=== PATIENT | male | born 1965 | race Caucasian/White ===

== ENCOUNTER 2022-05-28 14:25 | Outpatient (REF) | payer OTHER, SELFPAY ==
[2022-05-28 15:50] LABS: Abs Immature Grans 0.06 10^3/uL (0.0-0.06); Absolute Basophil Count 0.06 10^3/uL (0.0-0.2); Absolute Lymphocyte Count 4.08 10^3/uL (1.2-3.4); Basophils % 0.4; Eosinophils % 1.5; HCT 42.8 % (40.0-50.0); HGB 14.3 g/dL (13.5-17.5); Immature Grans % 0.4; Lymphocytes % 27.3; MCH 30.3 pg (27.0-33.0); MCHC 33.4 % (32.0-36.0); MCV 91 fL (80-95); MPV 10.3 fL (8.0-11.0); Neutrophils % 63.4; Platelet Count 350 10^3/uL (130-400); RBC 4.72 10^6/uL (4.36-5.78); RDW 13.1 % (11.8-14.1); RDW-SD 43.5 fL; WBC 14.93 10^3/uL (4.4-10.8)
[2022-05-28 15:51] LABS: Absolute Eosinophil Count 0.22 10^3/uL (0.0-0.7); Absolute Monocyte Count 1.05 10^3/uL (0.1-0.8); Absolute Neutrophil Count 9.47 10^3/uL (1.2-6.7)
[2022-05-28 16:04] LABS: C-Reactive Protein 5.69 mg/dL (0.0-0.3)
== END 2022-05-28 14:26 | disposition home or self-care (01) ==
LOC: LBN 14:25
PROVIDERS: PCP Physician Assistant Medical; Visit Provider Surgery
DX: K52.9 Noninfective gastroenteritis and colitis, unspecified (principal)
CPT/HCPCS: 85025; 86140

== ENCOUNTER 2022-06-07 10:31 | Day surgery (SDC) | payer OTHER, SELFPAY ==
--- NOTE | 2022-06-07 06:51 | W.COLOREPORT ---
Date of service: 06/07/22 Time of Service: 12:33 Colonoscopy Report Date of procedure: 06/07/22 Pre-op diagnosis general: colon cancer screening, hx of polyps, hx of diverticulitis Post-op diagnosis procedure note: other (polyps and mass) Procedure: Colonoscopy with biopsies Surgeon: Dixie Brown Anesthesia Type: General:No Airway Estimated blood loss (mL): 5 Pathology: other (Transverse colon biopsy at 90 cm, 80 cm, 73 cm, mass biopsies and polypectomy at 25 cm) Complications: None Disposition: same day Indications: The patient is a pleasant 56-year-old male who is here to discuss another screening colonoscopy. His last colonoscopy was in 2008 and he had a polyp. He denies any changes in bowel habits, melena, hematochezia, unintentional weight loss or family history of colon cancer. The procedure and risks were discussed. The prep was reviewed in detail. Risks, benefits and complications have been reviewed. Complications include but are not limited to bleeding, pain, perforation, missed small lesion/polyp, sore throat, aspiration and adverse reaction to the medications. Questions were entertained and answered to their satisfaction and they wished to proceed. No guarantees were given or implied.? Prep: Miralax/Dulcolax Procedure Start Time: 12:33 Procedure End Time: 13:02 Retraction Time: 20 minutes Findings: multiple polyps and a mass Procedure Description: After informed consent was obtained the patient was taken to the procedure room and placed in a left decubitous position. Monitors were applied and a time out was done. The patients name, date of , procedure, allergies to medications and metal in their body was reviewed. The patient was then sedated. Once sedated and comfortable a rectal exam was done. External exam was normal. Internal exam revealed a normal sphincter tone and no palpable masses. The prostate felt smooth. The scope was then introduced and retro-flexed. No internal hemorrhoids, polyps or masses were identified on retro-flexion. The scope was then advanced to the cecum with some difficulty due to a mass at 65 cm. The ileocecal vlave and appendiceal orifice were identified. The prep was good. The scope was then slowly retracted over 20 minutes back into the rectum. Biopsies of islands of Polyps were removed at 90 cm, 80 cm and 73 cm. Biopsies of a mass were done at 65 cm. Polypectomies done at 25 cm x2. There was no diverticulosis noted. The scope was removed and the patient was woken up and taken back to Same day surgery in stable condition. The patient tolerated the procedure well and there were no immediate complications.
--- NOTE | 2022-06-07 06:52 | W.PM.DSUDISC ---
Date of service: 06/07/22 Time of Service: 12:33 Discharge Plan Disposition Patient Disposition: HOME Condition: Good Discharge Details Reason For Visit: colonoscopy Attending Provider: Dixie Brown Primary Care Provider: Roger Bautista Home Meds and New Rx's Prescriptions: Continued Saccharomyces boulardii [Daily Probiotic (S. boulardii)] 250 mg capsule 5,000 mmu cells PO DAILY aloe vera juice liquid PO DAILY ondansetron HCl 4 mg tablet 4 mg PO Q4H Qty: 7 0RF Rx Instructions: take 1 tab before you start your prep and then as needed afterwards amoxicillin-pot clavulanate 875-125 mg tablet 1 tab PO BID Qty: 28 0RF intestinal formula capsule PO BID small intestine PO turmeric 400 mg capsule 400 mg PO DAILY nerve 4 sure capsule PO DAILY esomeprazole magnesium [Nexium] 20 mg capsule,delayed release(DR/EC) 20 mg PO DAILY ketoconazole 2 % cream 1 applic topical DAILY lisinopril 5 mg tablet 5 mg PO DAILY Discontinued polyethylene glycol 3350 17 gram/dose powder 238 g PO ONCE Qty: 238 0RF Rx Instructions: take per colonoscopy instructions bisacodyl [Dulcolax (bisacodyl)] 5 mg tablet,delayed release (DR/EC) 5 mg PO ONCE Qty: 4 0RF Rx Instructions: take per colonoscopy instructions Discharge Instructions Additional Instructions: Findings: mass and polyps Follow up: I will call you with results and we will plan from there Please call if you develop: fevers >101.5 Nausea or Vomiting Abdominal pain that is not transient Rectal bleeding that is more then a tbsp A hard abdomen and inability to pass gas DAY SURGERY UNIT POST ENDOSCOPY INSTRUCTIONS Instructions for everyone who is given Anesthesia: For your safety, please do the following for the next 24 Hours: a. Do not drive or operate dangerous equipment b. Do not drink alcohol beverages or use any recreational drugs for the first 24 hours or while taking pain medications. The medications in your body may have a reaction that can be dangerous. c. Do not make any important decisions or sign any important papers 1. Generally there are no restrictions on your activity after a day or so has gone by, but you may feel a bit fatigued for a few days. 2. After you arrive home you may have a light meal and return to a normal diet as you can tolerate it without feeling sick to your stomach. 3. After surgery, you may feel pain or discomfort. This should be only transient, but if it persists please contact your doctor. 4. If there are any questions regarding the findings of your procedure, please feel free to contact your doctor. 6. If you are unable to contact your doctor with a problem, contact the hospital at [phone]. 7. Continue all your regular medications unless directed otherwise. I understand the above instructions and have no questions. Signature of Patient or Responsible Adult Escort Date/Time Name of Responsible Adult Escort Signature of Nurse Date/Time Activity:: Activity as Tolerated Diet:: As Tolerated Discharge Orders Discharge Orders: Discharge Order (Routine); Ordered 06/07/22 Ordered By: Dixie Brown
[2022-06-07 10:51] VITALS: BP 136/83; PULSE 104; RESP 16; TEMP 36.6; O2SAT 98
[2022-06-07] MEDS: Lactated Ringers 1,000 ML 80 ML IV (11:29)
--- NOTE | 2022-06-07 12:18 | W.ANESPRE ---
General Info Date of Service Date Performed: 06/07/22 Height: 5 ft 11 in Weight: 98.4 kg Body Mass Index (BMI): 30.2 Surgical Procedure: Operation Date: 06/07/22 12:20 Proposed Procedure Side Surgeon p Colonoscopy Dixie Brown MD Meds Allergies and Home Medications Allergies Allergy/AdvReac Type Severity Reaction Status Date / Time CHUCKY Inhibitors Allergy Mild Other (See Verified 06/07/22 11:07 Comment) Home Medication Medication Instructions Recorded ketoconazole 2 % topical cream 1 applic topical DAILY 03/23/22 lisinopril 5 mg tablet 5 mg PO DAILY 03/23/22 Saccharomyces boulardii 250 mg 5,000 mmu cells PO DAILY 05/18/22 capsule (Daily Probiotic (S. boulardii)) aloe vera juice 100 ml PO DAILY 05/18/22 amoxicillin 875 mg-potassium 1 tab PO BID #28 tabs 05/18/22 clavulanate 125 mg tablet bisacodyl 5 mg tablet,delayed 5 mg PO ONCE colonscopy bowel prep 05/18/22 release (Dulcolax (bisacodyl)) #4 tabs ondansetron HCl 4 mg tablet 4 mg PO Q4H #7 tabs 05/18/22 polyethylene glycol 3350 17 238 g PO ONCE colonoscopy prep 05/18/22 gram/dose oral powder #238 grams esomeprazole magnesium 20 mg 20 mg PO DAILY 05/28/22 capsule,delayed release (Nexium) intestinal formula PO BID 05/28/22 nerve 4 sure PO DAILY 05/28/22 small intestine PO 05/28/22 turmeric 400 mg capsule 400 mg PO DAILY 05/28/22 Current Visit Medications: Current Medications Generic Name Dose Route Start Last Admin Trade Name Freq PRN Reason Stop Dose Admin Hyoscyamine Sulfate 0.125 mg 06/07/22 06:53 Hyoscyamine 0.125 Mg Sl/Oral/Chew SL DIRECTED PRN Ringer's Solution 1,000 mls @ 80 mls/hr 06/07/22 06:00 06/07/22 11:29 IV 07/04/22 23:59 80 mls/hr INFUSION DIEGO Administration IV Miscellaneous Supplies 1 each 06/07/22 06:00 Iv Access IV 07/04/22 23:59 DIRECTED DIEGO Ondansetron HCl 4 mg 06/07/22 06:53 Ondansetron 4 Mg/2 Ml Vial IVP Q4H PRN PRN Nausea / Vomiting Sodium Chloride 0 ml 06/07/22 06:00 Normal Saline Flush 10 Ml Syr IV 07/04/22 23:59 PRN PRN Sodium Chloride 0 ml 06/07/22 06:00 Normal Saline 10 Ml Vial IJ 07/04/22 23:59 DIRECTED PRN Sterile Water 0 ml 06/07/22 06:00 Water,Injection,Sterile 10 Ml Vial IJ 07/04/22 23:59 DIRECTED PRN PFSH Active Problems Active Problems: Problem Status Onset Code Crohn's disease K50.90 Family history of colon cancer Z80.0 Screening for colon cancer Z12.11 Medical History Medical History Chronic colitis Perforation of colon as colonoscopy complication Pseudopolyposis of colon Rectal bleed Medical History Comments:: 06/06/22 - smoked marijuana. At nighttime to help sleep. Surgical History Surgical History H/O exploratory laparotomy (~11/2017) History of colonoscopy (~11/2017) Tobacco Smoking/Tobacco Use Status: Current every day Tobacco Type: cigarettes Alcohol Alcohol Intake: current Alcohol intake frequency: 0-2 drinks per day Alcohol type: hard liquor Substance Use Substance use: Daily Substance use type: marijuana Details: 06/06/22 - smoked marijuana. At nighttime to help sleep. Vital Signs and Lab Results Vital Signs Most Recent Vital Signs in EMR: Most Recent Vital Signs Temp Pulse Resp BP Pulse Ox 36.6 C 104 H 16 136/83 98 06/07/22 10:51 06/07/22 10:51 06/07/22 10:51 06/07/22 10:51 06/07/22 10:51 Lab Results Blood Type / Crossmatch: No Data to Display Complete Blood Count: White Blood Count 14.93 10^3/uL (4.4-10.8) H 05/28/22 14:35 Red Blood Count 4.72 10^6/uL (4.36-5.78) 05/28/22 14:35 Hemoglobin 14.3 g/dL (13.5-17.5) 05/28/22 14:35 Hematocrit 42.8 % (40.0-50.0) 05/28/22 14:35 Platelet Count 350 10^3/uL (130-400) 05/28/22 14:35 Complete Metabolic Panel: C-Reactive Protein 5.69 mg/dL (0.0-0.3) H 05/28/22 14:35 Liver Function Panel: No Data to Display Coagulation Panel: No Data to Display Cardiac Panel: No Data to Display Arterial Blood Gas: No Data to Display Venous Blood Gas: No Data to Display Pancreas Panel: No Data to Display Thyroid Panel: No Data to Display Infectious Disease: No Data to Display Blood Cultures: No Data to Display Toxicology Panel: No Data to Display Anesthesia Assessment and Plan Anesthesia History Personal History: No History of Anesthesia Complications Family History: No Family History of Anesthesia Complications Exercise Tolerance Exercise Tolerance: Metabolic Equivalents>4 Pertinent Negatives Pertinent Negatives: No Symptoms of GERD, No Major Cardiovascular Symptoms or Complaints and No Major Pulmonary Symptoms or Complaints Cardiac & Pulmonary Exam Cardiac Exam: Normal S1/S2 Heart Sounds Pulmonary Exam: Clear Bilateral Breath Sounds Implantable Cardiac Device Does patient have a Pacemaker or an ICD?: No Airway Exam Known Difficult Airway: No Mallampati Class: 1 Mouth Opening: Normal (> 3cm) Thyromental Distance: Greater than 3 cm Facial Hair: Full [place] Neck Range of Motion: Full ROM Neck Circumference: Normal Teeth Condition: Removable Dentures/Plates Upper and Removable Dentures/Plates Lower ASA Classification ASA Score: ASA 2 Emergency Case?: No NPO Status NPO Status: NPO Clears >2 hours, Solids >8 hours Anesthesia Plan Resuscitation Status: Full Code Anesthesia Technique: General Anesthesia Airway Planned: Natural Airway Monitors Used: Standard Monitors
[2022-06-07 12:19] VITALS: BMI 30.2
--- NOTE | 2022-06-07 12:45 | BOWEL_PTH ---
PATIENT: Guicho Rodriguez LOC: [facility] U#:[id number] AGE/SX: 56/M ROOM: RE06/07/[address]: Dixie Brown MD : [id number] BED: DIS: 06/07/2022 SPEC #: [id number] RECD: 06/07/22 13:25 STATUS: ANGELIQUE RE #: [id number] MIKE: 06/07/22 12:[address]: Dixie Brown DEPT: Surgical Specimen RECD BY: Elvira Fernando ENTERED: 06/07/22 13:28 SP TYPE: Bowel OTHR DR: Roger Bautista Tissues: 1 - BIOPSY BOWEL 2 - BIOPSY BOWEL 3 - BIOPSY BOWEL 4 - BIOPSY BOWEL 5 - BIOPSY BOWEL Procedures: GROSS AND MICRO LEVEL 4 Comments: [id number]
[2022-06-07] MEDS: Endoscopic Tattoo 5 ML SYR IJ (12:57)
[2022-06-07 13:10] VITALS: BP 119/85; PULSE 96; RESP 18; TEMP 36.5; O2SAT 96
[2022-06-07 13:34] VITALS: BP 132/84; PULSE 94; RESP 18; TEMP 36.5; O2SAT 98
--- NOTE | 2022-06-07 13:44 | W.ANESPOSTOP ---
Postoperative Evaluation Date, Time and Location Date Performed: 06/07/22 Time Performed: 13:44 Patient Location: Day Surgery Unit Vital Signs Most Recent Imported Vital Signs: Most Recent Vital Signs Temp Pulse Resp BP Pulse Ox 36.5 C 94 H 18 132/84 98 06/07/22 13:34 06/07/22 13:34 06/07/22 13:34 06/07/22 13:34 06/07/22 13:34 Pain Score Most Recent Pain Score: Most Recent Pain Score Pain Level 1 06/07/22 13:34 Assessment Mental Status: Awake (Alert & Oriented to Patient Baseline) Airway and Respiratory Function: Patent airway with normal (patient baseline) respiratory exam Cardiovascular Function: Hemodynamically Stable Hydration Status: Adequately Hydrated Nausea & Vomiting: No Nausea or Vomiting Pain: Pt. Denies Any Pain Peripheral Nerve Block: Patient did not receive a nerve block
== END 2022-06-07 13:59 | disposition home or self-care (01) ==
PROVIDERS: PCP Physician Assistant Medical; Visit Provider Surgery
PROC: 0DJD8ZZ Inspection of Lower Intestinal Tract, Via Natural or Artificial Opening Endoscopic (ICD-10-PCS; CPT 45378; principal; 2022-06-07 12:15)
DX: Z12.11 Encounter for screening for malignant neoplasm of colon (principal); Z86.010 Personal history of colon polyps; K63.89 Other specified diseases of intestine; K63.5 Polyp of colon
CPT/HCPCS: 45380; 88305; J2704